=== PATIENT | male | born 2000 | race Caucasian/White ===

== ENCOUNTER 2019-03-12 13:35 | Emergency (ER) | payer OTHER ==
[2019-03-12 13:41] VITALS: BP 115/94
--- NOTE | 2019-03-12 14:00 | EDPHY ---
H & P Time Seen by Provider: 03/12/19 13:59 HPI/ROS: Chief complaint. Hand laceration HPI. 19-year-old male with left palm laceration sustained just prior to arrival. He was doing landscaping gardening and lifted a rock. Had a sharp edge and he sustained laceration to the left palm. Denies focal weakness paresthesias. No sense of foreign body. No other injuries. Patient is right handed. ROS 10 systems were reviewed and negative with the exception of the elements mentioned in the history of present illness Past Medical/Surgical History: Attention deficit hyperactivity disorder Social History: Single, daily smoker, no alcohol Smoking Status: Current some day smoker Physical Exam: General Appearance: Alert pleasant well-developed male mild distress vitals are stable Eyes: Pupils equal and round no pallor or injection. ENT, Mouth: Mucous membranes are moist. Respiratory: There are no retractions, lungs are clear to auscultation. Cardiovascular: Regular rate and rhythm. Gastrointestinal: Abdomen is soft and nontender, no masses, bowel sounds normal. Neurological: Awake and alert, sensory and motor exams grossly normal. Skin: 2 cm irregular laceration to the left palm just over the thenar eminence. Distal motor vascular sensitivity is intact. Nerve function and tendon function testing are normal Musculoskeletal: Neck is supple nontender. Extremities symmetrical, full range of motion. Psychiatric: Patient is oriented X 3, there is no agitation. Constitutional: Initial Vital Signs Temperature (C) 36.6 C 03/12/19 13:38 Heart Rate 82 03/12/19 13:38 Respiratory Rate 18 03/12/19 13:38 Blood Pressure 115/94 H 03/12/19 13:38 O2 Sat (%) 99 03/12/19 13:38 O2 Delivery Mode Room Air Allergies/Adverse Reactions: No Known Allergies Allergy (Unverified 03/12/19 13:38) Home Medications: Medication Instructions Recorded ADDERALL 15 MG TABLET 03/12/19 Medical Decision Making Procedures: Procedure: Laceration repair. Verbal consent was obtained from the patient. The 2 cm laceration on the left palm was anesthetized in the usual fashion. The wound was irrigated, draped and explored to its base with a gloved finger. There were no deep structures involved. No tendon injury was identified. The wound was repaired with eight 4 -0 prolene sutures. The wound repair was simple. The procedure was performed by myself. ED Course/Re-evaluation: Patient remained stable. We discussed treatment plan including criteria for return importance of follow-up and further evaluation. He expresses understanding and agreement Differential Diagnosis: I considered retained foreign body, tendon and nerve involvement Departure - Departure Disposition: Home, Routine, Self-Care Clinical Impression: Laceration of palm Qualifiers: Encounter type: initial encounter Laterality: left Qualified Code(s): S61.412A - Laceration without foreign body of left hand, initial encounter Condition: Good Instructions: Care For Your Stitches (ED) Additional Instructions: You may shower with you stitches in Antibiotic ointment and bandage until stitches out. Return for signs of infection Stitches out 10 days Referrals: Cruz Mckinney MD [Primary Care Provider] - As per Instructions
== END 2019-03-12 14:38 | disposition home or self-care (01) ==
PROC: 0HQFXZZ Repair Right Hand Skin, External Approach (ICD-10-PCS; principal; 2019-03-12)
DX: S61.411A Laceration without foreign body of right hand, initial encounter (principal); W26.8XXA Contact with other sharp object(s), not elsewhere classified, initial encounter; Y93.H2 Activity, gardening and landscaping